=== PATIENT | female | born 1935 | race Caucasian/White ===

== ENCOUNTER 2024-04-22 18:21 | Outpatient (CLI) | payer MEDICARE, SELFPAY | END 2024-04-22 18:22 | disposition home or self-care (01) | LOC: NFLDREF 05-08 18:03 | PROVIDERS: Visit Provider Physician Assistant | DX: N39.0 Urinary tract infection, site not specified (principal); R31.9 Hematuria, unspecified; B95.2 Enterococcus as the cause of diseases classified elsewhere | CPT/HCPCS: 87086; 87186 ==

== ENCOUNTER 2024-06-27 10:03 | Outpatient (CLI) | payer MEDICARE, SELFPAY | END 2024-06-27 10:04 | disposition home or self-care (01) | LOC: NFLDREF 07-01 22:24 | PROVIDERS: Visit Provider Family Medicine | DX: N39.0 Urinary tract infection, site not specified (principal); B95.2 Enterococcus as the cause of diseases classified elsewhere | CPT/HCPCS: 87086; 87186 ==